=== PATIENT | male | born 1995 | race Caucasian/White ===

== ENCOUNTER 2018-05-08 18:20 | Emergency (ER) | payer BC ==
[~2018-05-08] VITALS: Ht 188 cm; Wt 77.3 kg
[2018-05-08 18:23] VITALS: TEMP 97.7
[2018-05-08 19:25] LABS: BASO % 0.3 % (0.0-2.0); EOS % 0.1 % (0-4.0); GRAN # 10.3 (1.4-6.5); GRAN % 86.7 % (42.2-75.2); HEMATOCRIT 40.4 % (42.0-52.0); HEMOGLOBIN 14.4 g/dl (13.5-18.0); LYMPH % 8.2 % (20.0-51.0); MEAN CELL VOLUME 95 fl (80.0-100.0); MEAN CORPUSCULAR HEMOGLOBIN 34 pg (27.0-31.0); MEAN CORPUSCULAR HGB CONC 36 g/dl (33.0-37.0); MONO # 0.5 (0.1-0.6); MONO % 4.4 % (1.7-9.3); PLATELET COUNT 143 K/mm3 (130-400); RED BLOOD COUNT 4.26 M/mm3 (4.20-5.60)
[2018-05-08 19:48] LABS: ALANINE AMINOTRANSFERASE 78 U/L (21-72); ALKALINE PHOSPHATASE 71 U/L (50-136); ANION GAP 14 mmol/L (7-16); AST,SGOT 128 U/L (15-37); BILIRUBIN,TOTAL 2.1 mg/dL (0.0-1.0); BLOOD UREA NITROGEN 14 mg/dL (9-20); CALCIUM 10.3 mg/dL (8.4-10.2); CARBON DIOXIDE 32 mmol/L (22-30); GLUCOSE 100 mg/dL (74-106); POTASSIUM 3.5 mmol/L (3.4-5.0); SODIUM 130 mmol/L (137-145); TOTAL PROTEIN 8.5 gm/dL (6.4-8.2)
[2018-05-08 19:49] LABS: ALCOHOL(ethanol),MEDICAL < 10 mg/dL; C-REACTIVE PROTEIN < 0.5 mg/dL (0.0-0.9)
[2018-05-08 19:50] LABS: CHLORIDE 85 mmol/L (98-107)
[2018-05-08 21:49] VITALS: BP 154/98; PULSE 92
== END 2018-05-08 21:50 | disposition home or self-care (01) ==
LOC: COL.ER 18:20
PROVIDERS: Emergency Medicine
DX: S06.0X9A Concussion with loss of consciousness of unspecified duration, initial encounter (principal); S01.01XA Laceration without foreign body of scalp, initial encounter; S80.812A Abrasion, left lower leg, initial encounter; E87.8 Other disorders of electrolyte and fluid balance, not elsewhere classified; X58.XXXA Exposure to other specified factors, initial encounter
CPT/HCPCS: J7030

== ENCOUNTER 2019-04-13 09:45 | Emergency (ER) | payer BC ==
[~2019-04-13] VITALS: Ht 188 cm; Wt 81.8 kg
[2019-04-13 09:49] VITALS: TEMP 98.2
[2019-04-13 10:05] LABS: BASO # 0.1 (0.0-0.2); EOS # 0.1 (0.0-0.7); GRAN % 50.5 % (42.2-75.2); HEMATOCRIT 47.7 % (42.0-52.0); HEMOGLOBIN 16.1 g/dl (13.5-18.0); LYMPH % 38.2 % (20.0-51.0); MEAN CELL VOLUME 102 fl (80.0-100.0); MEAN CORPUSCULAR HEMOGLOBIN 34 pg (27.0-31.0); MEAN CORPUSCULAR HGB CONC 34 g/dl (33.0-37.0); MEAN PLATELET VOLUME 10.3 fl (7.4-10.4); MONO # 0.7 (0.1-0.6); MONO % 8.9 % (1.7-9.3); PLATELET COUNT 150 K/mm3 (130-400); REDCELL DISTRIBUTION WIDTH-CV 12.1 % (11.5-14.5)
[2019-04-13 10:15] LABS: ALANINE AMINOTRANSFERASE 155 U/L (21-72); ALBUMIN 5.2 gm/dL (3.5-5.0); ALKALINE PHOSPHATASE 96 U/L (50-136); ANION GAP 17 mmol/L (7-16); AST,SGOT 215 U/L (15-37); BILIRUBIN,TOTAL 0.6 mg/dL (0.0-1.0); BLOOD UREA NITROGEN 13 mg/dL (9-20); CALCIUM 9.1 mg/dL (8.4-10.2); CARBON DIOXIDE 20 mmol/L (22-30); CHLORIDE 113 mmol/L (98-107); CREATININE, serum 0.84 (0.66-1.25); GLUCOSE 89 mg/dL (74-106); SODIUM 150 mmol/L (137-145); TOTAL PROTEIN 8.8 gm/dL (6.4-8.2)
[2019-04-13 10:18] LABS: ACETAMINOPHEN < 10 ug/mL (10-30); SALICYLATE < 1.0 mg/dL
[2019-04-13 10:23] LABS: ALCOHOL(ethanol),MEDICAL 392 mg/dL
[2019-04-13 10:31] LABS: PROLACTIN 19.5 ng/mL (3.7-17.9)
[2019-04-13] MEDS ORDERED: KEPPRA750 MG PO (10:35)
[2019-04-13] MEDS ORDERED: ISOPTIN SR180 M1 PO (10:35)
[2019-04-13] MEDS ORDERED: LIBRIUM 25M25 MG/CAP PO (10:49)
[2019-04-13 13:50] LABS: COLLECTION METHOD CLEAN CATCH
[2019-04-13 14:03] LABS: TRICYCLIC ANTIDEPRESS URINE NEGATIVE
[2019-04-13 14:06] LABS: MUCOUS Present /lpf; PH 5 (5-8); SQUAMOUS EPITHELIAL None Seen /hpf; URINE APPEARANCE Hazy; URINE BACTERIA None Seen /hpf; URINE BILIRUBIN Negative (NEGATIVE); URINE BLOOD Negative (NEGATIVE); URINE COLOR Amber; URINE GLUCOSE Negative (NEGATIVE); URINE KETONE Trace (NEGATIVE); URINE LEUKOCYTE ESTERASE Negative (NEGATIVE); URINE NITRATE Negative (NEGATIVE); URINE PROTEIN(semi-quant) 2+ (NEGATIVE); URINE RBC None Seen /hpf
[2019-04-13 14:50] VITALS: BP 121/82; PULSE 96
== END 2019-04-13 14:50 | disposition home or self-care (01) ==
LOC: COL.ER 09:45
PROVIDERS: Emergency Medicine
DX: F10.129 Alcohol abuse with intoxication, unspecified (principal); E87.0 Hyperosmolality and hypernatremia; R74.0 Nonspecific elevation of levels of transaminase and lactic acid dehydrogenase [LDH]; Y90.8 Blood alcohol level of 240 mg/100 ml or more
CPT/HCPCS: J7120